=== PATIENT | male | born 1970 | race Caucasian/White ===

== ENCOUNTER 2023-06-28 11:51 | Observation (INO) ==
[2023-06-28 12:06] VITALS: BMI 24.3
--- NOTE | 2023-06-28 12:39 | DR.GENAD ---
HPI Time Seen Time Seen by Provider: 06/28/23 12:38 PCP Primary Care Physician: NICOLAS Complaint/Symptoms Chief Complaint Doctors Comments: Right abd pain Chief Complaint:: POSS. STRANGULATED HERNIA PER [facility]. PT STATES THAT IT STARTED ON WEDNESDAY. Self Treatment fo Chief Complaint: N/A COVID-19 Coronavirus risk:travel/contact w/high risk person: No Has patient experienced Coronavirus symptoms: No Nurses notes reviewed Nurses Notes Review: Yes Source History Provided: Patient Mode of Arrival Mode of Arrival: Ambulatory Timing Onset of Chief Complaint: 06/28/23 PMH PMH Past Medical History: Yes Past Medical History: Dyslipidemia Past Medical History Comment: PANCREATITIS Past Surgical History: Yes Surgical History: Abdominal Surgery and Cholecystectomy Past Surgical History Comment: PANCREAS Family History History of Family Medical Conditions: No Social History Does patient currently use any type of tobacco product: Yes Have you used tobacco products in the last 12 months: Yes Type of Tobacco Use: Cigarettes Does any household member use tobacco: No Alcohol Use: None Do you use any recreational Drugs:: No Lives With: Other Lives Where: [facility] Travel Risk Coronavirus risk:travel/contact w/high risk person: No Has patient experienced Coronavirus symptoms: No Infectious screening In the last 2 months have you had wt loss of >10#?: NO Have you had fever, night sweats or hemotysis?: No Have you traveled outside the country in the last 6 months?: No Isolation: Standard ROS Review of Systems Constitutional: No Symptoms Reported Eyes: No Symptoms Reported ENTM: No Symptoms Reported Respiratoy: No Symptoms Reported Cardiovascular: No Symptoms Reported Gastrointestinal/Abdominal: See HPI, Abdominal Pain and Nausea; negative Vomi ting or Food Intolerance Genitourinary: No Symptoms Reported Neurological: No Symptoms Reported Musculoskeletal: No Symptoms Reported Integumentary: No Symptoms Reported Hematologic/Lymphatic: No Symptoms Reported Endocrine: No Symptoms Reported Psychiatric: No Symptoms Reported All Other Systems: Reviewed and Negative PE Vital Signs Vitals: Vital Signs Temperature 98.9 F Pulse Rate 81 Respiratory Rate 20 Blood Pressure 153/86 O2 Sat by Pulse Oximetry 99 General Limitations: No Limitations General Appearance: Alert and In No Apparent Distress Head Head Exam: Normal Inspection Eyes Eye exam: Normal Appearance ENT ENT Exam: Normal Exam External Ear Exam: Normal External Inspection TM/Canal Exam: Bilateral: Normal Nose Exam: Normal Nose Exam Mouth Exam: Normal Inspection Throat Exam: Normal Inspection Neck Neck Exam: Normal Inspection Chest Chest Inspection: Normal Inspection Respiratory Respiratory Exam: Normal Lung Sounds Bilat Respiratory Exam: Bilateral: Clear to Auscultation Cardiovascular Cardiovascular Exam: Regular Rate and Normal Rhythm Abdominal Exam Abdominal Exam: Tenderness, Dimnished Bowel Sounds and Hernia; negative Normal Bowel Sounds Extremities Extremities Exam: Normal Inspection Back Back Exam: Normal Inspection Neurologic Neurological Exam: Alert and Oriented X3 Psychiatric Psychiatric Exam: Normal Affect and Normal Mood Skin Skin Exam: Warm, Dry, Intact and Normal Color MDM Differential Diagnosis Differential Diagnosis: Hernia, appendicitis COURSE Treatment Treatment: See orders while in ED. Reevaluation 1st: Improved Consultation Call Returned: 12:48 Consultation Comments: Dr. Abel consulted. Will take patient to Surgery. Education/Counseling Education/Counseling: Patient Educated On: Treatment, Diagnosis and Needs for Follow Up ROR Labs Reviewed Laboratory Results Reviewed?: Yes 06/29/23 05:59 06/29/23 05:59 Laboratory: WBC 8.6 X10^3/uL (3.6-10.0) 06/28/23 13:05 RBC 5.14 X10^6/uL (4.7-6.0) 06/28/23 13:05 Hgb 14.0 g/dL (13.5-18.0) 06/28/23 13:05 Hct 43.3 % (42.0-54.0) 06/28/23 13:05 MCV 84.2 fL (80.0-100.0) 06/28/23 13:05 MCH 27.3 pg (27.0-34.0) 06/28/23 13:05 MCHC 32.4 g/dL (33.0-35.0) L 06/28/23 13:05 RDW 14.7 % (11.6-16.5) 06/28/23 13:05 Plt Count 317 X10^3/uL (150.0-450.0) 06/28/23 13:05 MPV 7.9 fL (7.4-11.0) 06/28/23 13:05 Neut % (Auto) 76.8 % (42.0-75.0) H 06/28/23 13:05 Lymph % (Auto) 14.8 % (21.0-51.0) L 06/28/23 13:05 Phelps % (Auto) 6.9 % (0.0-13.0) 06/28/23 13:05 Eos % (Auto) 0.9 % (0.9-2.9) 06/28/23 13:05 Baso % (Auto) 0.6 % (0.2-1.0) 06/28/23 13:05 Neut # (Auto) 6.6 x10^3/uL (2.2-4.8) H 06/28/23 13:05 Lymph # (Auto) 1.3 X10^3/uL (1.3-2.9) 06/28/23 13:05 [place] # (Auto) 0.6 x10^3/uL (0.3-0.8) 06/28/23 13:05 Eos # (Auto) 0.1 x10^3/uL (0.0-0.2) 06/28/23 13:05 Baso # (Auto) 0.1 X10^3/uL (0.0-0.1) 06/28/23 13:05 Absolute Nucleated RBC 0.1 /100WBC 06/28/23 13:05 Sodium 140 mmol/L (136-145) 06/28/23 13:05 Corrected Sodium TNP 06/28/23 13:05 Potassium 3.9 mmol/L (3.5-5.1) 06/28/23 13:05 Chloride 102 mmol/L (98-107) 06/28/23 13:05 Carbon Dioxide 31.4 mmol/L (21-32) 06/28/23 13:05 BUN 9 mg/dL (7-18) 06/28/23 13:05 Creatinine 0.72 mg/dL (0.70-1.30) 06/28/23 13:05 Est GFR (MDRD) Af Amer > 60 (>60) 06/28/23 13:05 Est GFR (MDRD) Non-Af > 60 (>60) 06/28/23 13:05 Glucose 91 mg/dL (65-99) 06/28/23 13:05 Calcium 8.4 mg/dL (8.5-10.1) L 06/28/23 13:05 Corrected Calcium TNP 06/28/23 13:05 Total Bilirubin 0.40 mg/dL (0.2-1.0) 06/28/23 13:05 AST 15 Units/L (15-37) 06/28/23 13:05 ALT 24 Units/L (12-78) 06/28/23 13:05 Alkaline Phosphatase 90 Units/L (46-116) 06/28/23 13:05 Total Protein 7.2 g/dL (6.4-8.2) 06/28/23 13:05 Albumin 3.4 g/dL (3.4-5.0) 06/28/23 13:05 Globulin 3.8 g/dL (2.5-4.5) 06/28/23 13:05 Albumin/Globulin Ratio 0.9 Ratio (1.1-2.1) L 06/28/23 13:05 Specimen Type Clean catch urine 06/28/23 13:18 Urine Color Straw (YELLOW) 06/28/23 13:18 Urine Appearance Clear (CLEAR) 06/28/23 13:18 Urine pH 8.0 (5.0 - 8.0) 06/28/23 13:18 Ur Specific [place] 1.010 (1.000-1.030) 06/28/23 13:18 Urine Protein Negative (NEGATIVE) 06/28/23 13:18 Urine Glucose (UA) Negative (NEGATIVE) 06/28/23 13:18 Urine Ketones Negative (NEGATIVE) 06/28/23 13:18 Urine Blood Negative (NEGATIVE) 06/28/23 13:18 Urine Nitrite Negative (NEGATIVE) 06/28/23 13:18 Urine Bilirubin Negative (NEGATIVE) 06/28/23 13:18 Urine Urobilinogen Normal (NORMAL) 06/28/23 13:18 Ur Leukocyte Esterase Negative (NEGATIVE) 06/28/23 13:18 Tissue Pathology See comment. 06/28/23 14:46 XRAY XRAY Interpreted by: Radiologist X-ray Results: Name: ERNESTO RYDER [facility]#: [id number] : 1970 Sex: M Location: ER Order Number(s): [id number] Procedure(s):CHEST, 1 VIEW X-RAY Ordering Physician: ANA ARRIETA Primary Care: NFD,None Service Date: 06/28/23 Service Time: 1313 EXAM: CHEST, 1 VIEW HISTORY: PRE-OP FOR STRANGLATED HERNIA; Unavailable COMPARISON: None. FINDINGS: The trachea is midline. The cardiac silhouette is unremarkable. The lungs are clear without focal infiltrate or effusion. The bony thorax is unremarkable. IMPRESSION: No acute cardiopulmonary disease. THIS IS AN ELECTRONICALLY VERIFIED FINAL REPORT 06/28/2023 1:54 PM - Electronically signed by Jacobo Bautista MD Report Electronically signed: 06/28/23 0439 CC: Ana Arrieta EKG Rate: 77 Julian: Normal Rhythm: NSR Opioid Opioid Risk Tool Age (Dale box if 16-45): No History of Preadolescent Sexual Abuse: No Total: 0 Total Score Risk Category: Low Risk Copyright: Niraj VELASQUEZ predicting aberrant behaviors Management Prescription drug monitoring program results: PDMP reviewed and no concerns identified Discharge Plan Diagnosis Discharge Problem: Inguinal hernia of right side with obstruction Discharge Plan Patient Disposition: 09 ADMITTED INPATIENT Condition: Stable Prescription drug monitoring program results: PDMP reviewed and no concerns identified Orders to Discharge Patient Discharge Orders: Discharge (Routine); Ordered 06/29/23 Ordered By: ROBERT CAMPBELL ADDITIONAL NOTES Additional Notes Additional Notes: Pt will be admitted to Dr. Abel post surgery.
[2023-06-28] MEDS: NS 1,000 ML IV 1,000 ML IV SCH (13:08)
[2023-06-28 13:13] LABS: BASOPHILS # (AUTO) 0.1 X10^3/uL (0.0-0.1); BASOPHILS % (AUTO) 0.6 % (0.2-1.0); EOSINOPHILS # (AUTO) 0.1 x10^3/uL (0.0-0.2); EOSINOPHILS % (AUTO) 0.9 % (0.9-2.9); HEMATOCRIT 43.3 % (42.0-54.0); LYMPHOCYTES # (AUTO) 1.3 X10^3/uL (1.3-2.9); LYMPHOCYTES % (AUTO) 14.8 % (21.0-51.0); MEAN CORPUSCULAR HEMOGLOBIN 27.3 pg (27.0-34.0); MEAN CORPUSCULAR HGB CONC 32.4 g/dL (33.0-35.0); MEAN CORPUSCULAR VOLUME 84.2 fL (80.0-100.0); MEAN PLATELET VOLUME 7.9 fL (7.4-11.0); MONOCYTES # (AUTO) 0.6 x10^3/uL (0.3-0.8); MONOCYTES % (AUTO) 6.9 % (0.0-13.0); NEUTROPHILS # (AUTO) 6.6 x10^3/uL (2.2-4.8); NEUTROPHILS % (AUTO) 76.8 % (42.0-75.0); PLATELET COUNT 317 X10^3/uL (150.0-450.0); RED BLOOD COUNT 5.14 X10^6/uL (4.7-6.0); RED CELL DISTRIBUTION WIDTH 14.7 % (11.6-16.5); WHITE BLOOD COUNT 8.6 X10^3/uL (3.6-10.0)
[2023-06-28] MEDS: LEVAQUIN PREMIX IV 500 MG 500 MG/100 ML BAG IV ONE (13:24)
--- NOTE | 2023-06-28 13:35 | EKG ---
Test Reason : pre-op Blood Pressure : */* mmHG Vent. Rate : 77 BPM Atrial Rate : 77 BPM P-R Int : 156 ms QRS Dur : 82 ms QT Int : 388 ms P-R-T Axes : 80 69 73 degrees QTc Int : 439 ms Normal sinus rhythm Possible Left atrial enlargement Borderline ECG No previous ECGs available Confirmed by Mando Willingham MD ([id number]) on 06/28/2023 1:45:34 PM Referred By: Confirmed By: Mando Willingham MD
[2023-06-28 13:36] LABS: BILIRUBIN,URINE NEGATIVE (NEGATIVE); BLOOD/HEMOGLOBIN,URINE NEGATIVE (NEGATIVE); GLUCOSE, URINE NEGATIVE (NEGATIVE); KETONES,URINE NEGATIVE (NEGATIVE); LEUKOCYTE ESTERASE ,URINE NEGATIVE (NEGATIVE); NITRITES,URINE NEGATIVE (NEGATIVE); PROTEIN,URINE NEGATIVE (NEGATIVE); UROBILINOGEN,URINE NORMAL (NORMAL)
[2023-06-28 13:39] LABS: APPEARANCE,URINE CLEAR (CLEAR); COLOR,URINE STRAW (YELLOW)
[2023-06-28 13:43] LABS: ALANINE AMINOTRANSFERASE 24 Units/L (12-78); ALBUMIN 3.4 g/dL (3.4-5.0); ALKALINE PHOSPHATASE 90 Units/L (46-116); ASPARTATE AMINO TRANSFERASE 15 Units/L (15-37); BLOOD UREA NITROGEN 9 mg/dL (7-18); CALCIUM 8.4 mg/dL (8.5-10.1); CARBON DIOXIDE 31.4 mmol/L (21-32); CHLORIDE 102 mmol/L (98-107); CREATININE 0.72 mg/dL (0.70-1.30); GLUCOSE 91 mg/dL (65-99); POTASSIUM 3.9 mmol/L (3.5-5.1); SODIUM 140 mmol/L (136-145); TOTAL PROTEIN 7.2 g/dL (6.4-8.2); eGFR NON BLACK RACES > 60 (>60)
[2023-06-28] MEDS: MARCAINE 0.5% ONE (13:45)
[2023-06-28] MEDS: NOZIN NASAL SANITIZER TP ONE (13:51)
[2023-06-28] MEDS: LR 1,000 ML IV 1,000 ML IV ONE (13:55)
--- NOTE | 2023-06-28 13:57 | RAD ---
EXAM: CHEST, 1 VIEW HISTORY: PRE-OP FOR STRANGLATED HERNIA; Unavailable COMPARISON: None. FINDINGS: The trachea is midline. The cardiac silhouette is unremarkable. The lungs are clear without focal inf iltrate or effusion. The bony thorax is unremarkable. IMPRESSION: No acute cardiopulmonary disease. THIS IS AN ELECTRONICALLY VERIFIED FINAL REPORT 06/28/2023 1:54 PM - Electronically signed by Jacobo Bautista MD
[2023-06-28] MEDS: BRIDION ONE (14:05)
[2023-06-28] MEDS: DIPRIVAN VIAL 20 ML ONE (14:05)
[2023-06-28] MEDS: VERSED ONE (14:05)
[2023-06-28] MEDS ORDERED: SUPRANE ONE (14:05)
[2023-06-28] MEDS: FENTANYL VIAL INJ 250 mcg ONE (14:05)
[2023-06-28] MEDS: PEPCID 20 MG VIAL ONE (14:06)
[2023-06-28] MEDS: QUELICIN (OR ANECTINE) ONE (14:06)
[2023-06-28] MEDS: ZEMURON 100 MG VIAL ONE (14:06)
[2023-06-28] MEDS: ZOFRAN INJ 4 MG VIAL ONE (14:06)
[2023-06-28] MEDS: POLYMYXIN B SULFATE ONE (14:23)
[2023-06-28] MEDS: EPHEDRINE SULFATE INJ ONE (14:42)
[2023-06-28] MEDS: BARHEMSYS INJ ONE (15:25)
[2023-06-28] MEDS: DILAUDID INJ ONE (15:25)
[2023-06-28] MEDS: DILAUDID INJ IVP PRN ×2 (15:25→16:36)
[2023-06-28] MEDS: BARHEMSYS INJ IVP PRN (15:27)
[2023-06-28] MEDS ORDERED: ZOFRAN INJ 4 MG VIAL IVP PRN (15:28)
[2023-06-28] MEDS ORDERED: BENADRYL INJ 50 MG VIAL IVP PRN (15:28)
[2023-06-28] MEDS ORDERED: REGLAN INJ 10 MG VIAL IVP PRN (15:28)
[2023-06-28] MEDS ORDERED: NS IRRIGATION* 500 ML IR ONE (15:32)
[2023-06-28] MEDS: ZOFRAN INJ 4 MG VIAL IVP PRN (15:52)
[2023-06-28] MEDS: D5 1/2 NS 1,000 ML 1,000 ML IV SCH (16:35)
[2023-06-29 05:10] VITALS: PULSE 72
[2023-06-29 06:34] LABS: BASOPHILS % (AUTO) 0.5 % (0.2-1.0); EOSINOPHILS # (AUTO) 0.1 x10^3/uL (0.0-0.2); HEMATOCRIT 38.4 % (42.0-54.0); HEMOGLOBIN 12.3 g/dL (13.5-18.0); LYMPHOCYTES # (AUTO) 1.6 X10^3/uL (1.3-2.9); LYMPHOCYTES % (AUTO) 16.9 % (21.0-51.0); MEAN CORPUSCULAR HEMOGLOBIN 26.8 pg (27.0-34.0); MEAN CORPUSCULAR HGB CONC 32.1 g/dL (33.0-35.0); MEAN CORPUSCULAR VOLUME 83.5 fL (80.0-100.0); MEAN PLATELET VOLUME 8.3 fL (7.4-11.0); MONOCYTES # (AUTO) 1.1 x10^3/uL (0.3-0.8); MONOCYTES % (AUTO) 12.1 % (0.0-13.0); NEUTROPHILS # (AUTO) 6.6 x10^3/uL (2.2-4.8); NEUTROPHILS % (AUTO) 69.5 % (42.0-75.0); PLATELET COUNT 289 X10^3/uL (150.0-450.0); RED CELL DISTRIBUTION WIDTH 14.6 % (11.6-16.5); WHITE BLOOD COUNT 9.4 X10^3/uL (3.6-10.0)
[2023-06-29 06:48] LABS: ALANINE AMINOTRANSFERASE 57 Units/L (12-78); ALBUMIN 2.8 g/dL (3.4-5.0); ALKALINE PHOSPHATASE 87 Units/L (46-116); ASPARTATE AMINO TRANSFERASE 50 Units/L (15-37); BLOOD UREA NITROGEN 10 mg/dL (7-18); CALCIUM 8.1 mg/dL (8.5-10.1); CARBON DIOXIDE 32.7 mmol/L (21-32); CHLORIDE 99 mmol/L (98-107); COR CA(FOR HYPOALB) 9.1 mg/dL (8.5-10.1); CREATININE 0.72 mg/dL (0.70-1.30); GLUCOSE 92 mg/dL (65-99); POTASSIUM 3.9 mmol/L (3.5-5.1); SODIUM 135 mmol/L (136-145); TOTAL PROTEIN 6.2 g/dL (6.4-8.2); eGFR NON BLACK RACES > 60 (>60)
[2023-06-29] MEDS: LEVAQUIN PREMIX IV 500 MG 500 MG/100 ML BAG IV SCH (08:38)
[2023-06-29 09:41] VITALS: BP 108/72; RESP 20; TEMP 98.2; O2SAT 94
[2023-06-29] MEDS: PERCOCET TAB 5/325 MG PO PRN (10:26)
== END 2023-06-29 11:50 | disposition home or self-care (01) ==
LOC: ER 11:51 → INTOOBSV 15:53 → MED/SURG 15:53
PROVIDERS: ADMIT Surgery; ATTEND Surgery